=== PATIENT | female | born 1930 | race Caucasian/White ===

== ENCOUNTER 2018-05-08 21:38 | Inpatient (IN) | payer MEDICARE, OTHER ==
[2018-05-08 22:34] LABS: ADD MAN DIFF? NO
[2018-05-08 22:39] LABS: ABNORMAL IP MESSAGE 1; BASOPHILS % 0.2 % (0.0-2.0); HEMATOCRIT 38.4 % (37.0-47.0); HEMOGLOBIN 12.5 g/dl (12.0-16.0); LYMPHOCYTES # 0.5 10^3/ul (0.8-2.9); LYMPHOCYTES % 2.2 % (15.0-51.0); MEAN CORPUSCULAR HEMOGLOBIN 28.5 pg (29.0-33.0); MEAN CORPUSCULAR HGB CONC 32.6 g/dl (32.0-37.0); MEAN CORPUSCULAR VOLUME 87.5 fl (82.0-101.0); MEAN PLATELET VOLUME 10.3 fl (7.4-10.4); MONOCYTES % 4.7 % (0.0-11.0); NEUTROPHIL # 19.4 10^3/ul (1.6-7.5); NEUTROPHILS % 92.2 % (39.0-77.0); PLATELET COUNT 224 10^3/UL (140-415); RED BLOOD COUNT 4.39 10^6/ul (4.20-5.40); RED CELL DISTRIBUTION WIDTH 15.7 % (11.5-14.5)
[2018-05-08 22:41] LABS: POSITIVE DIFF @See below
[2018-05-08 22:53] LABS: ANION GAP 15 (5-13); BLOOD UREA NITROGEN 48 mg/dl (7-20); CALCIUM 9.4 mg/dl (8.4-10.2); CARBON DIOXIDE 15 mmol/L (21-31); CHLORIDE 103 mmol/L (97-110); CREATININE 2.27 mg/dl (0.44-1.00); GLUCOSE 263 mg/dl (70-220); POTASSIUM 4.9 mmol/L (3.5-5.1); SODIUM 133 mmol/L (135-144)
[2018-05-08 22:56] LABS: AMMONIA < 9 umol/l (9-30)
[2018-05-08] MEDS: SODIUM CHLORIDE 0.9% 1L BAG IV* (22:57)
[2018-05-08 23:04] LABS: TROPONIN-I 0.013 ng/ml (0.000-0.120)
[2018-05-08] MEDS: AZTREONAM 1 GM/NS (PMX) 50 ML IVPB (23:11)
[2018-05-08 23:26] LABS: INR 1.61; PROTIME 19.5 Sec (11.9-14.9); PT RATIO 1.5
[2018-05-08 23:27] LABS: PARTIAL THROMBOPLASTIN TIME 41.7 Sec (23.0-35.0)
[2018-05-08 23:37] LABS: ADD UMIC YES; UR AMORPHOUS CRYSTAL FEW /HPF (NONE SEEN); UR ASCORBIC ACID NEGATIVE (NEGATIVE); UR BACTERIA MODERATE /HPF (NONE SEEN); UR BILIRUBIN (Dip) NEGATIVE (NEGATIVE); UR BLOOD (Dip) 3+ mg/dL (NEGATIVE); UR CLARITY TURBID (CLEAR); UR COLOR YELLOW (YELLOW); UR GLUCOSE (Dip) NEGATIVE (NEGATIVE); UR KETONES (Dip) NEGATIVE (NEGATIVE); UR LEUKOCYTE ESTERASE (Dip) 2+ Leu/ul (NEGATIVE); UR MUCUS FEW /HPF (NONE SEEN); UR NITRITE (Dip) NEGATIVE (NEGATIVE); UR NONSQUAMOUS EPITHELIAL CELL 12 /HPF (NONE SEEN); UR RBC 82 /HPF (0-5); UR SPECIFIC GRAVITY (Dip) 1.012 (1.003-1.030); UR SQUAMOUS EPITHELIAL CELL MODERATE /HPF (FEW); UR TOTAL PROTEIN (Dip) 2+ mg/dl (NEGATIVE); UR UROBILINOGEN (Dip) NEGATIVE (NEGATIVE); UR WBC > 182 /HPF (0-5)
[2018-05-08] MEDS: VANCOMYCIN 1 GM (PMX) 250 ML IVPB (23:53)
[2018-05-09] MEDS: DOPamine-D5W 1.6 MG/ML 250 ML IV (02:17)
[2018-05-09] MEDS: SOD CHLORIDE 0.9% 1,000 ML IV ×5 (02:17→19:38)
[2018-05-09 03:37] LABS: LACTIC ACID 0.9 mmol/L (0.5-2.0)
[2018-05-09] MEDS ORDERED: DOPamine-D5W 1.6 MG/ML 250 ML IV (04:30)
[2018-05-09] MEDS ORDERED: VANCOMYCIN IV PER PHARMACY XX (04:30)
[2018-05-09 05:30] LABS: ADD MAN DIFF? NO
[2018-05-09 05:47] LABS: WHITE BLOOD COUNT 17.7 10^3/ul (4.8-10.8)
[2018-05-09 05:47] LABS: BASOPHILS % 0.2 % (0.0-2.0); HEMATOCRIT 42.2 % (37.0-47.0); HEMOGLOBIN 13.1 g/dl (12.0-16.0); LYMPHOCYTES # 0.9 10^3/ul (0.8-2.9); LYMPHOCYTES % 5.2 % (15.0-51.0); MEAN CORPUSCULAR HEMOGLOBIN 28.4 pg (29.0-33.0); MEAN CORPUSCULAR VOLUME 91.3 fl (82.0-101.0); MEAN PLATELET VOLUME 9.9 fl (7.4-10.4); MONOCYTE # 0.9 10^3/ul (0.3-0.9); MONOCYTES % 4.9 % (0.0-11.0); NEUTROPHIL # 15.7 10^3/ul (1.6-7.5); NEUTROPHILS % 88.6 % (39.0-77.0); PLATELET COUNT 217 10^3/UL (140-415); RED BLOOD COUNT 4.62 10^6/ul (4.20-5.40); RED CELL DISTRIBUTION WIDTH 15.9 % (11.5-14.5)
[2018-05-09 06:09] LABS: LACTIC ACID 1.5 mmol/L (0.5-2.0)
[2018-05-09] MEDS: PANTOPRAZOLE 40 MG INJ IV (06:31)
[2018-05-09 06:32] LABS: ALANINE AMINOTRANSFERASE 11 IU/L (13-69); ALBUMIN/GLOBULIN RATIO 0.75; ALKALINE PHOSPHATASE 73 IU/L (42-121); ANION GAP 14 (5-13); ASPARTATE AMINO TRANSFERASE 24 IU/L (15-46); BILIRUBIN,INDIRECT 0.4 mg/dl (0-1.1); BILIRUBIN,TOTAL 0.4 mg/dl (0.2-1.3); BLOOD UREA NITROGEN 41 mg/dl (7-20); CALCIUM 8.3 mg/dl (8.4-10.2); CARBON DIOXIDE 15 mmol/L (21-31); CHLORIDE 110 mmol/L (97-110); GLUCOSE 216 mg/dl (70-220); MAGNESIUM 1.4 mg/dl (1.7-2.5); PHOSPHORUS 3.7 mg/dl (2.5-4.9); POTASSIUM 4.8 mmol/L (3.5-5.1); SODIUM 139 mmol/L (135-144)
[2018-05-09] MEDS: LEVOFLOXACIN 500MG/D5W (PMX) 100 ML IVPB (06:42)
[2018-05-09] MEDS: INSULIN ASPART [NOVOLOG] 3 ML PEN SC ×3 (07:35→18:04)
[2018-05-09] MEDS ORDERED: NORepinephrine 8MG/250 ML (PMX 250 ML (08:09)
[2018-05-09] MEDS: ONDANSETRON 4 MG INJ IV (09:10)
[2018-05-09] MEDS: SOD CHLORIDE 0.9% 250 ML IV (09:12)
[2018-05-09] MEDS: MAGNESIUM SULFATE 2 GM/50 ML 50 ML IVPB (09:19)
[2018-05-09] MEDS: LIDOCAINE 1% (MPF) 5 ML VIAL SC (10:15)
[2018-05-09] MEDS: AMIKACIN IV PER PHARMACY XX (11:00)
[2018-05-09] MEDS: ACETAMINOPHEN 325 MG TAB PO (11:47)
[2018-05-09] MEDS: AMIKACIN 500 MG in SOD CHLORIDE 0.9% 100 ML IVPB (14:00)
[2018-05-10] MEDS: SOD CHLORIDE 0.9% 1,000 ML IV ×5 (00:51→18:15)
[2018-05-10] MEDS: ACCU-CHEK XX (02:30)
[2018-05-10 03:21] LABS: ADD MAN DIFF? NO
[2018-05-10 03:22] LABS: WHITE BLOOD COUNT 22.1 10^3/ul (4.8-10.8)
[2018-05-10 03:22] LABS: BASOPHIL # 0.1 10^3/ul (0.0-0.1); BASOPHILS % 0.3 % (0.0-2.0); HEMATOCRIT 34.1 % (37.0-47.0); HEMOGLOBIN 11.1 g/dl (12.0-16.0); LYMPHOCYTES # 0.9 10^3/ul (0.8-2.9); LYMPHOCYTES % 4.1 % (15.0-51.0); MEAN CORPUSCULAR HEMOGLOBIN 28.7 pg (29.0-33.0); MEAN CORPUSCULAR HGB CONC 32.6 g/dl (32.0-37.0); MEAN CORPUSCULAR VOLUME 88.1 fl (82.0-101.0); MEAN PLATELET VOLUME 9.1 fl (7.4-10.4); MONOCYTE # 1.1 10^3/ul (0.3-0.9); NEUTROPHIL # 19.7 10^3/ul (1.6-7.5); NEUTROPHILS % 89.3 % (39.0-77.0); PLATELET COUNT 278 10^3/UL (140-415); RED BLOOD COUNT 3.87 10^6/ul (4.20-5.40); RED CELL DISTRIBUTION WIDTH 15.8 % (11.5-14.5)
[2018-05-10 03:50] LABS: PHOSPHORUS 2.8 mg/dl (2.5-4.9)
[2018-05-10 03:50] LABS: MAGNESIUM 1.5 mg/dl (1.7-2.5)
[2018-05-10 04:07] LABS: ALANINE AMINOTRANSFERASE 23 IU/L (13-69); ALBUMIN 2.2 g/dl (3.3-4.9); ALBUMIN/GLOBULIN RATIO 0.66; ALKALINE PHOSPHATASE 79 IU/L (42-121); ANION GAP 9 (5-13); ASPARTATE AMINO TRANSFERASE 16 IU/L (15-46); BILIRUBIN,INDIRECT 0.2 mg/dl (0-1.1); BILIRUBIN,TOTAL 0.2 mg/dl (0.2-1.3); BLOOD UREA NITROGEN 26 mg/dl (7-20); CALCIUM 7.4 mg/dl (8.4-10.2); CARBON DIOXIDE 15 mmol/L (21-31); CHLORIDE 114 mmol/L (97-110); GLUCOSE 153 mg/dl (70-220); POTASSIUM 4.4 mmol/L (3.5-5.1); SODIUM 138 mmol/L (135-144); TOTAL PROTEIN 5.5 g/dl (6.1-8.1)
[2018-05-10] MEDS ORDERED: MAGNESIUM SULFATE 2 GM/50 ML 50 ML (04:19)
[2018-05-10] MEDS: MAGNESIUM SULFATE 2 GM/50 ML 50 ML IVPB (04:47)
[2018-05-10] MEDS: PHENYLephrine 20MG IN 250 ML 250 ML IV (04:50)
[2018-05-10 06:56] LABS: MAGNESIUM 2.2 mg/dl (1.7-2.5)
[2018-05-10] MEDS: PANTOPRAZOLE (EC) 40 MG TAB PO (06:58)
[2018-05-10] MEDS ORDERED: DEXTROSE 50% 50 ML SYRINGE IV ×2 (08:00)
[2018-05-10] MEDS ORDERED: ONDANSETRON 4 MG INJ IV (08:00)
[2018-05-10] MEDS ORDERED: GLUCOSE GEL 15 GRAM TUBE PO ×2 (08:00)
[2018-05-10] MEDS ORDERED: GLUCAGON 1 MG INJ IM (08:00)
[2018-05-10] MEDS ORDERED: GLUCOSE GEL 15 GRAM TUBE BUCCAL (08:00)
[2018-05-10] MEDS: PHENYLephrine 40 MG in DEXTROSE 5% 496 ML IV ×3 (08:45→21:00)
[2018-05-10] MEDS: PROMETHAZINE 25 MG SUPP PR (09:09)
[2018-05-10] MEDS: ENOXAPARIN 30 MG/0.3 ML SYG SC (09:13)
[2018-05-10] MEDS: MEROPENEM 1 GM/50ML(PMX) 50 ML IVPB ×2 (11:34→20:56)
[2018-05-10] MEDS: INSULIN ASPART [NOVOLOG] 3 ML PEN SC ×3 (12:25→20:56)
[2018-05-10] MEDS ORDERED: PHENYLephrine 20MG IN 250 ML 250 ML (13:56)
[2018-05-10] MEDS ORDERED: VANCOMYCIN 750 MG in SOD CHLORIDE 0.9% 150 ML IVPB ×2 (22:00→23:45)
[2018-05-11] MEDS: PHENYLephrine 40 MG in DEXTROSE 5% 496 ML IV ×4 (01:27→18:57)
[2018-05-11] MEDS: ACCU-CHEK XX (02:26)
[2018-05-11 04:57] LABS: ADD MAN DIFF? NO
[2018-05-11 05:00] LABS: WHITE BLOOD COUNT 19.9 10^3/ul (4.8-10.8)
[2018-05-11 05:00] LABS: ABNORMAL IP MESSAGE 1; BASOPHIL # 0.1 10^3/ul (0.0-0.1); BASOPHILS % 0.5 % (0.0-2.0); EOSINOPHILS % 0.2 % (0.0-7.0); HEMATOCRIT 38.1 % (37.0-47.0); HEMOGLOBIN 12.2 g/dl (12.0-16.0); LYMPHOCYTES # 2.1 10^3/ul (0.8-2.9); LYMPHOCYTES % 10.5 % (15.0-51.0); MEAN CORPUSCULAR HEMOGLOBIN 28.2 pg (29.0-33.0); MEAN CORPUSCULAR VOLUME 88.2 fl (82.0-101.0); MEAN PLATELET VOLUME 9.5 fl (7.4-10.4); MONOCYTE # 1.6 10^3/ul (0.3-0.9); MONOCYTES % 7.9 % (0.0-11.0); NEUTROPHIL # 15.6 10^3/ul (1.6-7.5); NEUTROPHILS % 78.3 % (39.0-77.0); PLATELET COUNT 296 10^3/UL (140-415); RED BLOOD COUNT 4.32 10^6/ul (4.20-5.40); RED CELL DISTRIBUTION WIDTH 15.9 % (11.5-14.5)
[2018-05-11 05:02] LABS: POSITIVE DIFF @See below
[2018-05-11 05:30] LABS: ALANINE AMINOTRANSFERASE 45 IU/L (13-69); ALBUMIN 2.4 g/dl (3.3-4.9); ALBUMIN/GLOBULIN RATIO 0.66; ALKALINE PHOSPHATASE 160 IU/L (42-121); ANION GAP 11 (5-13); ASPARTATE AMINO TRANSFERASE 69 IU/L (15-46); BILIRUBIN,INDIRECT 0.3 mg/dl (0-1.1); BILIRUBIN,TOTAL 0.3 mg/dl (0.2-1.3); BLOOD UREA NITROGEN 22 mg/dl (7-20); CALCIUM 7.6 mg/dl (8.4-10.2); CARBON DIOXIDE 13 mmol/L (21-31); CHLORIDE 109 mmol/L (97-110); GLUCOSE 241 mg/dl (70-220); MAGNESIUM 1.6 mg/dl (1.7-2.5); PHOSPHORUS 3.5 mg/dl (2.5-4.9); POTASSIUM 4.1 mmol/L (3.5-5.1); SODIUM 133 mmol/L (135-144)
[2018-05-11] MEDS ORDERED: LEVOFLOXACIN 250MG/D5W (PMX) 50 ML IVPB (06:00)
[2018-05-11] MEDS: PANTOPRAZOLE (EC) 40 MG TAB PO (06:03)
[2018-05-11] MEDS: ENOXAPARIN 30 MG/0.3 ML SYG SC (08:47)
[2018-05-11] MEDS: INSULIN ASPART [NOVOLOG] 3 ML PEN SC ×4 (08:59→20:12)
[2018-05-11] MEDS: SOD CHLORIDE 0.9% 1,000 ML IV ×2 (09:47→18:58)
[2018-05-11] MEDS: MEROPENEM 1 GM/50ML(PMX) 50 ML IVPB ×2 (10:34→21:26)
[2018-05-11] MEDS: MAGNESIUM SULFATE 4 GM/100 ML 100 ML IVPB (11:33)
[2018-05-11] MEDS ORDERED: LEVALBUTEROL (NEB) 0.63 MG/3 ML AMP (11:51)
[2018-05-11] MEDS: IPRATROPIUM (NEB) 0.5 MG/2.5 ML AMP HHN ×2 (11:57→22:00)
[2018-05-11] MEDS: LEVALBUTEROL (NEB) 1.25 MG/0.5 ML AMP HHN ×2 (11:57→22:00)
[2018-05-11] MEDS: APIXABAN 5 MG TABLET PO (20:08)
[2018-05-11] MEDS ORDERED: ACETAMINOPHEN 325 MG TAB PO (21:30)
[2018-05-11 21:32] LABS: AADO2 Arterial 145.6 mmHg (7.0-24.0); Allen Test ACCEPTAB; Arterial Base Excess -13.6 mmol/L (-3.0-3); Arterial Blood Gas Oxygen Sat 92.2 mmHG (95.0-100.0); Arterial COHb 0.2 % (0.0-3.0); Arterial Fraction of Oxyhgb 91.7 % (93.0-99.0); Arterial HCO3 10.1 mmol/L (22.0-26.0); Arterial MetHb 0.3 % (0.0-1.5); Arterial pCO2 19.7 mmhg (35-45); MODE NASAL CANNULA; Site Left Radial
[2018-05-11] MEDS: morphine 2 MG INJ IV (22:20)
[2018-05-12] MEDS: PHENYLephrine 40 MG in DEXTROSE 5% 496 ML IV ×6 (00:16→23:12)
[2018-05-12] MEDS: ACCU-CHEK XX (02:09)
[2018-05-12] MEDS: IPRATROPIUM (NEB) 0.5 MG/2.5 ML AMP HHN ×4 (03:13→19:42)
[2018-05-12] MEDS: LEVALBUTEROL (NEB) 1.25 MG/0.5 ML AMP HHN ×4 (03:13→19:42)
[2018-05-12 05:01] LABS: ADD MAN DIFF? NO
[2018-05-12 05:02] LABS: WHITE BLOOD COUNT 17.6 10^3/ul (4.8-10.8)
[2018-05-12 05:02] LABS: BASOPHILS % 0.2 % (0.0-2.0); EOSINOPHILS % 0.2 % (0.0-7.0); HEMATOCRIT 34.3 % (37.0-47.0); HEMOGLOBIN 10.9 g/dl (12.0-16.0); LYMPHOCYTES # 1.3 10^3/ul (0.8-2.9); LYMPHOCYTES % 7.1 % (15.0-51.0); MEAN CORPUSCULAR HEMOGLOBIN 28.2 pg (29.0-33.0); MEAN CORPUSCULAR HGB CONC 31.8 g/dl (32.0-37.0); MEAN CORPUSCULAR VOLUME 88.6 fl (82.0-101.0); MEAN PLATELET VOLUME 9.7 fl (7.4-10.4); MONOCYTES % 5.7 % (0.0-11.0); NEUTROPHIL # 14.9 10^3/ul (1.6-7.5); NEUTROPHILS % 84.8 % (39.0-77.0); PLATELET COUNT 181 10^3/UL (140-415); RED BLOOD COUNT 3.87 10^6/ul (4.20-5.40); RED CELL DISTRIBUTION WIDTH 15.5 % (11.5-14.5)
[2018-05-12 05:38] LABS: ALANINE AMINOTRANSFERASE 261 IU/L (13-69); ALBUMIN 2.3 g/dl (3.3-4.9); ALBUMIN/GLOBULIN RATIO 0.67; ALKALINE PHOSPHATASE 158 IU/L (42-121); ANION GAP 12 (5-13); ASPARTATE AMINO TRANSFERASE 225 IU/L (15-46); BILIRUBIN,INDIRECT 0.3 mg/dl (0-1.1); BILIRUBIN,TOTAL 0.3 mg/dl (0.2-1.3); BLOOD UREA NITROGEN 25 mg/dl (7-20); CALCIUM 7.8 mg/dl (8.4-10.2); CARBON DIOXIDE 12 mmol/L (21-31); CHLORIDE 107 mmol/L (97-110); CREATININE 1.53 mg/dl (0.44-1.00); GLUCOSE 190 mg/dl (70-220); POTASSIUM 4.2 mmol/L (3.5-5.1); SODIUM 131 mmol/L (135-144); TOTAL PROTEIN 5.7 g/dl (6.1-8.1)
[2018-05-12 05:42] LABS: MAGNESIUM 2.3 mg/dl (1.7-2.5)
[2018-05-12] MEDS: PANTOPRAZOLE (EC) 40 MG TAB PO (06:09)
[2018-05-12] MEDS: SOD CHLORIDE 0.9% 1,000 ML IV (06:35)
[2018-05-12 06:52] LABS: LACTIC ACID 2.6 mmol/L (0.5-2.0)
[2018-05-12] MEDS: INSULIN ASPART [NOVOLOG] 3 ML PEN SC ×5 (08:01→20:57)
[2018-05-12] MEDS: APIXABAN 5 MG TABLET PO ×2 (08:06→21:00)
[2018-05-12] MEDS: MEROPENEM 1 GM/50ML(PMX) 50 ML IVPB ×2 (09:21→20:47)
[2018-05-12] MEDS ORDERED: NA BICARBONATE 8.4% 50 ML SYG (09:27)
[2018-05-12] MEDS ORDERED: VANCOMYCIN IV PER PHARMACY XX (09:30)
[2018-05-12] MEDS: NA BICARBONATE 8.4% 50 ML SYG IV ×2 (09:33→13:15)
[2018-05-12] MEDS: morphine 2 MG INJ IV ×2 (09:37→23:17)
[2018-05-12] MEDS: DEXTROSE IV ×2 (09:49→10:09)
[2018-05-12] MEDS: SODIUM BICARBONATE IV ×2 (09:49→10:09)
[2018-05-12] MEDS: SOD CHLORIDE 0.9% 500 ML IV (10:43)
[2018-05-12] MEDS: VANCOMYCIN 1.25 GM in SOD CHLORIDE 0.9% 250 ML IVPB (10:45)
[2018-05-12 12:24] LABS: AADO2 Arterial 621.9 mmHg (7.0-24.0); Allen Test ACCEPTAB; Arterial Base Excess -17.3 mmol/L (-3.0-3); Arterial COHb 0.3 % (0.0-3.0); Arterial Fraction of Oxyhgb 91.7 % (93.0-99.0); Arterial HCO3 8.6 mmol/L (22.0-26.0); Arterial MetHb 0 % (0.0-1.5); Arterial pCO2 21.9 mmhg (35-45); MODE HFNC; Site Right Radial
[2018-05-12 12:45] LABS: ANION GAP 13 (5-13); BLOOD UREA NITROGEN 26 mg/dl (7-20); CALCIUM 7.7 mg/dl (8.4-10.2); CARBON DIOXIDE 13 mmol/L (21-31); CHLORIDE 101 mmol/L (97-110); CREATININE 1.67 mg/dl (0.44-1.00); GLUCOSE 266 mg/dl (70-220); POTASSIUM 4.1 mmol/L (3.5-5.1); SODIUM 127 mmol/L (135-144)
[2018-05-12 12:56] LABS: LACTIC ACID 3.9 mmol/L (0.5-2.0)
[2018-05-12] MEDS ORDERED: PHENYLephrine 20MG IN 250 ML 250 ML (13:57)
[2018-05-12] MEDS: SODIUM BICARBONATE (IV ADD) 100 MEQ in SOD CHLORIDE 0.45% 1,000 ML IV ×2 (14:04→21:53)
[2018-05-12] MEDS ORDERED: INSULIN ASPART [NOVOLOG] 3 ML PEN SC (17:35)
[2018-05-12 18:11] LABS: ADD UMIC YES; UR ASCORBIC ACID NEGATIVE (NEGATIVE); UR BILIRUBIN (Dip) NEGATIVE (NEGATIVE); UR BLOOD (Dip) 2+ mg/dL (NEGATIVE); UR CLARITY TURBID (CLEAR); UR COLOR YELLOW (YELLOW); UR GLUCOSE (Dip) 2+ mg/dL (NEGATIVE); UR KETONES (Dip) TRACE mg/dL (NEGATIVE); UR LEUKOCYTE ESTERASE (Dip) 2+ Leu/ul (NEGATIVE); UR MUCUS MODERATE /HPF (NONE SEEN); UR NITRITE (Dip) NEGATIVE (NEGATIVE); UR NONSQUAMOUS EPITHELIAL CELL 7 /HPF (NONE SEEN); UR RBC 90 /HPF (0-5); UR SPECIFIC GRAVITY (Dip) 1.017 (1.003-1.030); UR SQUAMOUS EPITHELIAL CELL MANY /HPF (FEW); UR TOTAL PROTEIN (Dip) 2+ mg/dl (NEGATIVE); UR UROBILINOGEN (Dip) 2+ mg/dL (NEGATIVE); UR WBC > 182 /HPF (0-5)
[2018-05-12 18:35] LABS: CREATININE,URINE RANDOM 130.11 mg/dl (20-320)
[2018-05-12 18:35] LABS: SODIUM,URINE RANDOM 37 mmol/L (30-90)
[2018-05-13] MEDS: LEVALBUTEROL (NEB) 1.25 MG/0.5 ML AMP HHN ×3 (01:30→14:40)
[2018-05-13] MEDS: IPRATROPIUM (NEB) 0.5 MG/2.5 ML AMP HHN ×3 (01:31→14:40)
[2018-05-13] MEDS: ACCU-CHEK XX (01:42)
[2018-05-13] MEDS: INSULIN ASPART [NOVOLOG] 3 ML PEN SC ×5 (01:42→16:56)
[2018-05-13 03:19] LABS: ABNORMAL IP MESSAGE 1; HEMATOCRIT 43.3 % (37.0-47.0); MEAN CORPUSCULAR HGB CONC 32.3 g/dl (32.0-37.0); MEAN CORPUSCULAR VOLUME 86.6 fl (82.0-101.0); MEAN PLATELET VOLUME 10.1 fl (7.4-10.4); PLATELET COUNT 307 10^3/UL (140-415); RED CELL DISTRIBUTION WIDTH 15.5 % (11.5-14.5)
[2018-05-13 03:19] LABS: WHITE BLOOD COUNT 25.6 10^3/ul (4.8-10.8)
[2018-05-13 03:24] LABS: POSITIVE DIFF @See below
[2018-05-13 03:25] LABS: ADD MAN DIFF? YES
[2018-05-13] MEDS: SODIUM BICARBONATE (IV ADD) 100 MEQ in SOD CHLORIDE 0.45% 1,000 ML IV ×3 (03:55→12:48)
[2018-05-13 04:11] LABS: BAND NEUTROPHILS #M 1.5 10^3/ul (0.0-0.6); BAND NEUTROPHILS % (M) 6 % (0-4); LYMPHOCYTES #M 4.3 10^3/ul (0.8-2.9); LYMPHOCYTES % (M) 17 % (15-51); MONOCYTES % (M) 4 % (0-11); PLATELET ESTIMATE NORMAL; POIKILOCYTOSIS 3+ (0-0); POLYCHROMASIA 1+ (0-0); SEG NEUT #M 19.1 10^3/ul (1.6-7.5); SEGMENTED NEUTROPHILS (M) % 73 % (39-77)
[2018-05-13 04:12] LABS: LACTIC ACID 4.9 mmol/L (0.5-2.0)
[2018-05-13 04:24] LABS: MAGNESIUM 2.1 mg/dl (1.7-2.5)
[2018-05-13 04:37] LABS: ALANINE AMINOTRANSFERASE 916 IU/L (13-69); ALBUMIN/GLOBULIN RATIO 0.69; ALKALINE PHOSPHATASE 201 IU/L (42-121); ANION GAP 17 (5-13); BILIRUBIN,INDIRECT 0.4 mg/dl (0-1.1); BILIRUBIN,TOTAL 0.4 mg/dl (0.2-1.3); BLOOD UREA NITROGEN 27 mg/dl (7-20); CALCIUM 8.3 mg/dl (8.4-10.2); CARBON DIOXIDE 14 mmol/L (21-31); CHLORIDE 97 mmol/L (97-110); CREATININE 1.68 mg/dl (0.44-1.00); GLUCOSE 227 mg/dl (70-220); POTASSIUM 4.2 mmol/L (3.5-5.1); SODIUM 128 mmol/L (135-144); TOTAL PROTEIN 7.3 g/dl (6.1-8.1)
[2018-05-13] MEDS: PHENYLephrine 160 MG in DEXTROSE 5% 484 ML IV (05:44)
[2018-05-13] MEDS: PANTOPRAZOLE (EC) 40 MG TAB PO (05:54)
[2018-05-13 08:39] LABS: AADO2 Arterial 612.1 mmHg (7.0-24.0); Arterial Base Excess -13.6 mmol/L (-3.0-3); Arterial Blood Gas Oxygen Sat 76.4 mmHG (95.0-100.0); Arterial COHb 0.3 % (0.0-3.0); Arterial HCO3 15.8 mmol/L (22.0-26.0); Arterial MetHb 0.2 % (0.0-1.5); Arterial pCO2 50.4 mmhg (35-45); Blood Gas IEPAP 15/5; Blood Gas PS 10; MODE MASK - BIPAP; Site LB
[2018-05-13] MEDS: APIXABAN 5 MG TABLET PO (08:59)
[2018-05-13] MEDS: MEROPENEM 1 GM/50ML(PMX) 50 ML IVPB (09:00)
[2018-05-13] MEDS: NORepinephrine 32 MG in DEXTROSE 5% 218 ML IV (09:26)
[2018-05-13] MEDS: VANCOMYCIN 750 MG in SOD CHLORIDE 0.9% 150 ML IVPB (11:24)
[2018-05-13 12:07] LABS: ASPARTATE AMINO TRANSFERASE 922 IU/L (15-46)
[2018-05-13] MEDS: morphine 2 MG INJ IV ×2 (13:31→18:26)
[2018-05-13] MEDS: morphine (DRIP) 100 MG/100 ML 100 ML IV (18:43)
[2018-05-15] MEDS ORDERED: VANCOMYCIN 750 MG in SOD CHLORIDE 0.9% 150 ML IVPB (11:00)
[2018-05-15 13:07] LABS: PROCALCITONIN 0.93 ng/mL (<0.10)
== END 2018-05-13 22:31 | disposition expired | DRG 871 ==
LOC: E/R 21:38 → ICU 05-09 01:10
PROC: 02HV33Z Insertion of Infusion Device into Superior Vena Cava, Percutaneous Approach (ICD-10-PCS; principal; 2018-05-09)
PROC: 5A09357 Assistance with Respiratory Ventilation, Less than 24 Consecutive Hours, Continuous Positive Airway Pressure (ICD-10-PCS; 2018-05-12)
DX: A41.9 Sepsis, unspecified organism (principal); N17.0 Acute kidney failure with tubular necrosis; J69.0 Pneumonitis due to inhalation of food and vomit; J96.90 Respiratory failure, unspecified, unspecified whether with hypoxia or hypercapnia; R65.21 Severe sepsis with septic shock; N39.0 Urinary tract infection, site not specified; E87.1 Hypo-osmolality and hyponatremia; E87.4 Mixed disorder of acid-base balance; I45.81 Long QT syndrome; E11.22 Type 2 diabetes mellitus with diabetic chronic kidney disease; I48.0 Paroxysmal atrial fibrillation; E86.0 Dehydration; I27.20 Pulmonary hypertension, unspecified; D63.1 Anemia in chronic kidney disease; G40.909 Epilepsy, unspecified, not intractable, without status epilepticus; M81.0 Age-related osteoporosis without current pathological fracture; I12.9 Hypertensive chronic kidney disease with stage 1 through stage 4 chronic kidney disease, or unspecified chronic kidney disease; N18.9 Chronic kidney disease, unspecified; E78.5 Hyperlipidemia, unspecified; M10.9 Gout, unspecified; Z66 Do not resuscitate; Z79.4 Long term (current) use of insulin; Z95.0 Presence of cardiac pacemaker; Z85.3 Personal history of malignant neoplasm of breast; Z87.440 Personal history of urinary (tract) infections; Z87.891 Personal history of nicotine dependence
CPT/HCPCS: 36415; 36569; 36600; 70450; 71045; 76604; 76700; 76937; 80048; 80053; 81001; 82140; 82803; 82962; 83605; 83735; 84100; 84145; 84155; 84300; 84443; 84484; 85025; 85610; 85730; 87040; 87081; 87086; 93005; 93306; 94640; 94660; 96365; 96366; 96368; 99291-25